=== PATIENT | female | born 1990 | race Caucasian/White ===

== ENCOUNTER 2022-04-13 00:41 | Emergency (ER) | payer MEDICAID ==
[~2022-04-13] VITALS: Ht 157.5 cm; Wt 60.5 kg
[~2022-04-13 00:41] MED LIST: ALBU17IN INH; BUSP5TA PO; FERR325T3 PO; FERRTASA PO; MOTR200T44 PO; ONDA-1 PO; PERCOCET PO; PRENTAB40 PO; PRENTAB66 PO; ZOLO20CO PO
[2022-04-13 00:42] VITALS: BP 129/90
== END 2022-04-13 06:30 | disposition left against medical advice (07) ==
LOC: M ED 00:41
DX: Z53.21 Procedure and treatment not carried out due to patient leaving prior to being seen by health care provider (principal)